=== PATIENT | male | born 1955 | race Caucasian/White ===

== ENCOUNTER 2024-09-23 14:57 | Emergency (ER) | payer MEDICARE, OTHER, SELFPAY ==
[2024-09-23] VITALS (7 sets, daily range): BP systolic 95–130; BP diastolic 63–89; BMI 24.6
[2024-09-23 15:25] LABS: Hematocrit 34.2 % (39.0-52.0); Hemoglobin 11.5 g/dL (13.0-18.0); Mean Corp Hgb Conc. 33.6 g/dL (33.0-37.0); Mean Corpuscular Volume 88.6 fL (80.0-94.0); Nucleated Red Blood Cells % 0 % (-); Platelet Count 136 10^3/uL (130-400); Red Cell Dist. Width 17.8 % (11.5-14.5)
--- NOTE | 2024-09-23 15:32 | ED.GENMED ---
History of Present Illness
General
Chief Complaint: Chest Pain
Source: patient
Exam Limitations: none
Time Seen by Provider: 09/23/24 15:14
History of Present Illness
History of Present Illness:
69yoM with a history of coronary artery disease, hypertension, hyperlipidemia, prior DVT on Eliquis, anemia presenting via EMS for evaluation of chest pain. Patient reports intermittent chest pains over the past 2 days. He describes a sharp pain
in his left upper back which radiates to the chest. Symptoms last a few seconds at a time and seem to occur when he is overheated. Patient does not have air conditioning in his house. He was walking in his kitchen around 11:30 AM when he again
had sharp pain in his left upper back which went into the chest. He sat on the floor and symptoms resolved after about 10 minutes. His came home after grocery shopping and he told her about his symptoms and she called 911. Patient reports
being asymptomatic at this time and he is currently chest pain free. He does report exertional dyspnea dating back to 2023 and is seeing a machinist instructor next week in regards to this. He denies any associated diaphoresis, nausea, dizziness,
syncope, abdominal pain. He had a heart attack in 2006 but no intervention was performed. He follows with [facility].
Phy Exam
General Physical Exam
General Presentation: well appearing and no apparent distress
General Skin: warm and dry
General Habitus: normal and elderly
General Mental: alert
ENT Exam
ENT Exam: normocephalic
Cardiovascular Exam
Cardiovascular Exam: regular rate/rhythm, no edema and no murmur
Pulmonary Exam
Pulmonary Exam: lungs clear, no respiratory distress, no rales, no crackles, no rhonchi and no wheezing
Neurological Exam
Neurological Exam: alert
[place] Coma Scale
Eye Opening: Spontaneous
Verbal Response: Oriented
Motor Response: Obeys Commands
GCS Total Score: 15
Skin Exam
Skin Exam: normal color and warm/dry
Psychiatric Exam
Psychiatric Exam: normal mood/affect
Scores
Heart Score for Chest Pain Patients
STEMI patient?: No
History: Slightly or Non-Suspicious
ECG: Normal
Age: >/= 65 years
Risk Factors: >/= 3 Risk Factors or History of CAD
Troponin: </= Normal Limit
Heart Score for Chest Pain Patients: 4
Heart Score Risk: 20.3% MACE over next 6 weeks
Course
Orders/Labs/Results
Orders:
Orders
09/23/24 15:01
Electrocardiogram (*1) Urgent
Reason for Study: Chest Pain
EKG- Treatment ONCE
09/23/24 15:15
Complete Blood Count/With Diff Urgent
Comprehensive Metabolic Panel Urgent
Troponin I Urgent
09/23/24 15:31
Cardiac Monitoring- Treatment ONCE
CR Chest - 2 Views Urgent
Comment:
Reason For Exam: CP
09/23/24 15:38
0.9% Sodium Chloride 500 ml [Nss] 500 ml IV BOLUS
09/23/24 16:12
EKG- Treatment ONCE
09/23/24 18:15
Electrocardiogram (*1) Urgent
Reason for Study: Chest Pain
09/23/24 19:27
Troponin I Urgent
Abnormal Lab Results
09/23/24
15:15
RBC 3.86 L 10^6/uL
(4.70-6.10)
Hgb 11.5 L g/dL
(13.0-18.0)
Hct 34.2 L %
(39.0-52.0)
RDW 17.8 H %
(11.5-14.5)
MPV 11.5 H fL
(7.4-10.4)
Monocytes % 10.0 H %
(1.7-9.3)
Chloride 115 H mmol/L
(98-107)
Carbon Dioxide 15 L mmol/L
(22-30)
Glucose 103 H mg/dl
(70-99)
Total Protein 5.7 L g/dl
(6.3-8.2)
09/23/24 15:15
09/23/24 15:15
Vital Signs
Initial and Last Documented VS:
Initial Vital Signs
Temp Pulse Resp BP Pulse Ox
98.1 F 88 20 112/87 97
09/23/24 15:04 09/23/24 15:04 09/23/24 15:04 09/23/24 15:04 09/23/24 15:04
Last Documented Vital Signs
Temp Pulse Resp BP Pulse Ox
98.1 F 81 22 130/88 96
09/23/24 15:04 09/23/24 20:15 09/23/24 20:15 09/23/24 20:00 09/23/24 19:00
MDM/Problems Addressed
Differential Diagnosis Includes:
69yoM here with chest pain. Episode of back pain radiating into chest today. Lasted 10 minutes. Now asymptomatic. Had similar episodes the past few days which occur when he is overheated. Hx of CAD. VSS. He is resting comfortably on exam.
Differential diagnosis includes but is not limited to: ACS, musculoskeletal, doubt PE as he is anticoagulated with normal vitals, doubt aortic dissection as symptoms have resolved
Initial ED plan: Check cardiac labs, EKG, and CXR.
*Pulse Oximetry
SaO2: 97
Oxygen Mode of Delivery: Room air
Patient hypoxic: no (97%)
*EKG
Interpreted by ED Provider?: Yes
EKG Intrepretation Date: 09/23/24
Heart Rate: 88
Rate: normal
Rhythm: sinus
[place]: left axis deviation
Interval: normal interval
QRS Pattern: normal QRS
Ischemia: no ischemia
*Critical Care Note
Total Time (30-74mins, 75-104mins- exclusive of procedures): Not Applicable
Update Note
Update Note:
EKG shows NSR without ischemic changes and troponin is 0.023. CXR is clear. Bicarb is 15 and hyperchloremia present. Patient does admit to having some diarrhea which may explain this. IV fluid bolus ordered. Repeat EKG performed at 3 hours
unchanged. Repeat troponin is overall stable at 0.028. Patient remains asymptomatic on reassessment and he has not had any chest pain throughout entire ED stay. No telemetry events noted. D/w Dr. Patricia. No indication for hospitalization. He was
advised to f/u with his regulatory services consultant and strict ED return precautions reviewed. Patient discharged in stable condition.
ED Attending Note
-
Portions of this chart may have been created with voice recognition software.� Occasional wrong word or��sound alike� substitutions may have occurred due to the inherent limitations of voice recognition software.
Discharge Plan
Departure
Patient Disposition: Home (Routine Discharge)
Date of Disposition: 09/23/24
Time of Disposition: 20:21
Patient with high blood pressure during this ER visit?: No
Discharge Problem:
Chest pain
Instructions: Chest Pain NON-DHP Sql Report Analyst Follow Up
Referrals:
Kaylin Mendoza, DO [Family Provider]
Activity Restrictions/Additional Instructions:
Please follow with your regulatory services consultant tomorrow. Return to the ER immediately with any new or worsening symptoms.
Interventions
Interventions:
*Risk Screen - Suicide Last Done: 09/23/24 15:04
*General Assessment Last Done: 09/23/24 15:04
*Neglect/Abuse Screening Last Done: 09/23/24 15:04
*ED COVID-19 Vaccine History Last Done: 09/23/24 15:04
*Nursing Disposition Last Done: 09/23/24 20:51
ED- Cardiac Assessment Last Done: 09/23/24 15:10
Discharge Date and Time
Discharge Date/Time: 09/23/24 20:57
Print Language: SYRIAC
[2024-09-23 15:37] LABS: ALT (SGPT) 34 U/L (0-50); AST (SGOT) 37 U/L (17-59); Albumin 3.5 g/dl (3.5-5.0); Alkaline Phosphatase 62 U/L (38-126); Blood Urea Nitrogen 18 mg/dl (9-20); Calcium 9.1 mg/dl (8.4-10.2); Carbon Dioxide 15 mmol/L (22-30); Chloride 115 mmol/L (98-107); Estimated Creatinine Clearance 66 ml/min; Glucose 103 mg/dl (70-99); Potassium 3.6 mmol/L (3.5-5.1); Sodium 137 mmol/L (135-145); Total Protein 5.7 g/dl (6.3-8.2); eGFR > 60.00
[2024-09-23 15:49] LABS: Troponin I 0.023 ng/ml
[2024-09-23] MEDS: NSS 500 IV (16:43)
[2024-09-23 20:03] LABS: Troponin I 0.028 ng/ml
== END 2024-09-23 20:57 | disposition home or self-care (01) ==
LOC: EMR 14:57
PROVIDERS: Emergency Medicine; Physician Assistant; EMERGENCY PHYSICIAN Student in an Organized Health Care Education/Training Program; FAMILY PHYSICIAN Family Medicine
DX: R07.89 Other chest pain (principal); M54.6 Pain in thoracic spine; R06.00 Dyspnea, unspecified; R19.7 Diarrhea, unspecified; E87.8 Other disorders of electrolyte and fluid balance, not elsewhere classified; I25.10 Atherosclerotic heart disease of native coronary artery without angina pectoris; I10 Essential (primary) hypertension; E78.5 Hyperlipidemia, unspecified; D64.9 Anemia, unspecified; Z86.718 Personal history of other venous thrombosis and embolism; I25.2 Old myocardial infarction; Z79.01 Long term (current) use of anticoagulants; Z88.8 Allergy status to other drugs, medicaments and biological substances
CPT/HCPCS: 99285; 96360; 71046; 80053; 84484; 85025; 93005